=== PATIENT | female | born 1980 | race American Indian/Alaskan Native ===

== ENCOUNTER 2021-01-28 19:16 | Emergency (ER) | payer MEDICAID ==
--- NOTE | 2021-01-28 21:04 | Event Note ---
ED Screening Note ED Screening Note: llq pain since tuesday no dysuria no vag dc This initial assessment/diagnostic orders/clinical plan/treatment(s) is/are subject to change based on patients health status, clinical progression and re- assessment by fellow clinical providers in the ED. Further treatment and workup at subsequent clinical providers discretion. Patient/guardian urged not to elope from the ED as their condition may be serious if not clinically assessed and managed. Initial orders include: labs ua
[2021-01-28 21:14] VITALS: BP 146/97
[2021-01-28 21:42] LABS: Bilirubin,Urine NEG (Negative); Blood,Urine NEG (Negative); Color,Urine Yellow (Yellow); Mucus,Urine FEW /HPF; Protein,Urine <15 mg/dL mg/dL (Negative); Urobilinogen,Urine < 2.0 mg/dL (<2.0)
[2021-01-28 21:44] LABS: Hematocrit 30.9 % (30.3-42.9); Hemoglobin 9.7 gm/dl (10.1-14.3); Mean Corpuscular HGB Conc 31 % (30-34); Mean Corpuscular Volume 71 fl (79-97); Platelet Count 333 K/mm3 (140-440); Red Blood Count 4.38 M/mm3 (3.65-5.03); Red Cell Distribution Width 19.6 % (13.2-15.2)
[2021-01-28 21:50] LABS: HCG Qualitative,Urine Negative (Negative)
--- NOTE | 2021-01-28 21:57 | Emergency Department Report ---
ED Abdominal Pain HPI - General Chief Complaint: Abdominal Pain Stated Complaint: ABD PAIN/CRAMPS PUI?: No Time Seen by Provider: 01/28/21 21:37 Source: patient Mode of arrival: Ambulatory Limitations: No Limitations - History of Present Illness Initial Comments: 40 YO AA COMES TO ER WITH LOWER ABD PAIN. SUPRAPUBIC AND TO LEFT NO VAG DC NO DYSURIA NO CONCERN FOR STI PRIOR HX UTI NO FEVER OR CHILLS NO N/V AMBULATORY NON ILL APPEARING ON ARRIVAL TO ER Severity scale (0 -10): 0 - Related Data Previous Rx's Medication Instructions Recorded Last Taken Type Fluconazole [Diflucan TAB] 200 mg PO QDAY #1 tablet 01/28/21 Unknown Rx Sulfamethoxazole/Trimethoprim 1 each PO BID #10 tablet 01/28/21 Unknown Rx [Bactrim DS TAB] Allergies Allergy/AdvReac Type Severity Reaction Status Date / Time No Known Allergies Allergy Verified 01/28/21 21:59 ED Review of Systems ROS: Stated complaint: ABD PAIN/CRAMPS Other details as noted in HPI Comment: All other systems reviewed and negative ED Past Medical Hx - Past Medical History Previous Medical History?: Yes Hx Hypertension: Yes - Surgical History Past Surgical History?: No - Family History Family history: no significant - Social History Smoking Status: Never Smoker Substance Use Type: None - Medications Home Medications: Home Medications Medication Instructions Recorded Confirmed Last Taken Type Fluconazole [Diflucan TAB] 200 mg PO QDAY #1 tablet 01/28/21 Unknown Rx Sulfamethoxazole/Trimethoprim 1 each PO BID #10 tablet 01/28/21 Unknown Rx [Bactrim DS TAB] ED Physical Exam - General Limitations: No Limitations General appearance: alert, in no apparent distress - Head Head exam: Present: atraumatic, normocephalic - Eye Eye exam: Present: normal appearance - ENT ENT exam: Present: mucous membranes moist - Neck Neck exam: Present: normal inspection - Respiratory Respiratory exam: Present: normal lung sounds bilaterally. Absent: respiratory distress - Cardiovascular Cardiovascular Exam: Present: regular rate, normal rhythm. Absent: systolic murmur, diastolic murmur, rubs, gallop - GI/Abdominal GI/Abdominal exam: Present: soft, normal bowel sounds - Extremities Exam Extremities exam: Present: normal inspection - Back Exam Back exam: Present: normal inspection - Neurological Exam Neurological exam: Present: alert, oriented X3 - Psychiatric Psychiatric exam: Present: normal affect, normal mood - Skin Skin exam: Present: warm, dry, intact, normal color. Absent: rash ED Course Vital Signs 01/28/21 01/28/21 21:09 22:50 Temperature 98.6 F Pulse Rate 78 79 Respiratory 18 16 Rate Blood Pressure 146/97 [Right] O2 Sat by Pulse 100 100 Oximetry ED Medical Decision Making - Lab Data Result diagrams: 01/28/21 21:24 01/28/21 21:24 - Medical Decision Making Lab Results 01/28/21 01/28/21 Range/Units 21:16 21:24 WBC 5.9 (4.5-11.0) K/mm3 RBC 4.38 (3.65-5.03) M/mm3 Hgb 9.7 L (10.1-14.3) gm/dl Hct 30.9 (30.3-42.9) % MCV 71 L (79-97) fl MCH 22 L (28-32) pg MCHC 31 (30-34) % RDW 19.6 H (13.2-15.2) % Plt Count 333 (140-440) K/mm3 Urine Color Yellow (Yellow) Urine Turbidity Cloudy (Clear) Urine pH 8.0 H (5.0-7.0) Ur Specific [place] 1.011 (1.003-1.030) Urine Protein <15 mg/dl (Negative) mg/dL Urine Glucose (UA) Neg (Negative) mg/dL Urine Ketones Neg (Negative) mg/dL Urine Blood Neg (Negative) Urine Nitrite Neg (Negative) Urine Bilirubin Neg (Negative) Urine Urobilinogen < 2.0 (<2.0) mg/dL Ur Leukocyte Esterase Neg (Negative) Urine WBC (Auto) 17.0 H (0.0-6.0) /HPF Urine RBC (Auto) 4.0 (0.0-6.0) /HPF U Epithel Cells (Auto) 1.0 (0-13.0) /HPF Urine Mucus Few /HPF Urine Yeast (Budding) 3+ /HPF Urine HCG, Qual Negative (Negative) Vital Signs 01/28/21 21:09 Temperature 98.6 F Pulse Rate 78 Respiratory 18 Rate Blood Pressure 146/97 [Right] O2 Sat by Pulse 100 Oximetry ua noted rocephin im and diflucan in ER culture pending denies vag dc or itching. abd snt no cva tenderness ambulatory non ill nontoxic on dc dc home with rx and instructions for follow up. pt verbalizes understanding of plan of care - Differential Diagnosis RO PREG/UTI Critical care attestation.: If time is entered above; I have spent that time in minutes in the direct care of this critically ill patient, excluding procedure time. ED Disposition Clinical Impression: UTI (urinary tract infection) Disposition: DC-01 TO HOME OR SELFCARE Is pt being admited?: No Does the pt Need Aspirin: No Condition: Stable Instructions: Urinary Tract Infection, Adult, Abdominal Pain (ED) Additional Instructions: MEDS ORDERED TODAY FOLLOW UP WITH PCP NEXT WEEK TO BE SURE YOU ARE GETTING BETTER REFERRAL BELOW STAY WELL HYDRATED WITH WATER TYLENOL OR MOTRIN FOR PAIN Prescriptions: Sulfamethoxazole/Trimethoprim [Bactrim DS TAB] 1 each PO BID #10 tablet Fluconazole [Diflucan TAB] 200 mg PO QDAY #1 tablet Referrals: JASON HILLIARD MD [Staff Physician] - 3-5 Days Time of Disposition: 22:02
[2021-01-28] MEDS ORDERED: IBUPROFEN 800 MG TAB PO ONE (21:58)
[2021-01-28] MEDS ORDERED: LIDOCAINE-MPF (1%) 10 MG/1 ML VIAL 5 ML INFILTRATI ONE (21:58)
[2021-01-28 22:07] LABS: Blood Urea Nitrogen 12 mg/dL (7-17); Calcium 9.5 mg/dL (8.4-10.2); Hemolysis Index 2
[2021-01-28 22:14] LABS: BUN/Creatinine Ratio 17
== END 2021-01-28 22:50 | disposition home or self-care (01) ==
LOC: ED 19:16
DX: N39.0 Urinary tract infection, site not specified (principal); I10 Essential (primary) hypertension; Z79.899 Other long term (current) drug therapy
CPT/HCPCS: 36415; 80048; 81001; 81025; 85027; 87086; 96372; 99283; J0696

== ENCOUNTER 2021-04-17 10:56 | Emergency (ER) | payer MEDICAID ==
[2021-04-17 11:08] VITALS: BP 148/80
--- NOTE | 2021-04-17 16:57 | Emergency Department Report ---
ED Dizziness HPI - General Chief Complaint: Dizziness Stated Complaint: HEADACHE/JOINT ACHE/DIZZY,ABD PAIN Time Seen by Provider: 04/17/21 16:38 Source: patient Mode of arrival: Ambulatory Limitations: No Limitations - History of Present Illness Initial Comments: 40-year-old female with a past medical history of hypertension presents to the hospital complaining of headache, shoulder/joint pain, dizziness, lower abdominal pain since yesterday. Symptoms worse today. Patient states she has been having intermittent fasting for the last 2 weeks. He is also having looser stools than usual and had 3-4 episodes today. She denies nausea, vomiting, feve r, dysuria, or urinary frequency prior history of anemia as a teenager. Patient's LMP was April 03 and was heavy. She denies cough, chest pain, shortness of breath, loss of sense of taste or smell. Patient did receive her Covid vaccine. - Related Data Previous Rx's Medication Instructions Recorded Last Taken Type Fluconazole [Diflucan TAB] 200 mg PO QDAY #1 tablet 01/28/21 Unknown Rx Sulfamethoxazole/Trimethoprim 1 each PO BID #10 tablet 01/28/21 Unknown Rx [Bactrim DS TAB] Allergies Allergy/AdvReac Type Severity Reaction Status Date / Time No Known Allergies Allergy Verified 01/28/21 21:59 ED Review of Systems ROS: Stated complaint: HEADACHE/JOINT ACHE/DIZZY,ABD PAIN Other details as noted in HPI Comment: All other systems reviewed and negative ED Past Medical Hx - Past Medical History Previous Medical History?: Yes Hx Hypertension: Yes - Surgical History Past Surgical History?: No - Social History Smoking Status: Never Smoker Substance Use Type: None - Medications Home Medications: Home Medications Medication Instructions Recorded Confirmed Last Taken Type Fluconazole [Diflucan TAB] 200 mg PO QDAY #1 tablet 01/28/21 Unknown Rx Sulfamethoxazole/Trimethoprim 1 each PO BID #10 tablet 01/28/21 Unknown Rx [Bactrim DS TAB] ED Physical Exam - General Limitations: No Limitations - Other Other exam information: General: No acute distress Head: Atraumatic Eyes: normal appearance ENT: Moist mucous membranes Neck: Normal appearance, no midline tenderness Chest: Clear to auscultation bilaterally CV: Regular rate and rhythm Abdomen: Soft, normal bowel sounds, nontender, nondistended, no rebound or guarding Back: Normal inspection Extremity: Normal inspection, full range of motion Neuro: Alert O x 3, no facial asymmetry, speech clear, no gross motor sensory deficit Psych: Appropriate behavior Skin: No rash ED Course Vital Signs 04/17/21 04/17/21 11:02 18:02 Temperature 98.1 F Pulse Rate 79 Respiratory 18 16 Rate Blood Pressure 148/80 O2 Sat by Pulse 100 100 Oximetry ED Medical Decision Making - Lab Data Result diagrams: 04/17/21 16:57 04/17/21 16:57 Lab Results 04/17/21 04/17/21 04/17/21 Range/Units 16:57 16:57 Unknown WBC 5.6 (4.5-11.0) K/mm3 RBC 4.63 (3.65-5.03) M/mm3 Hgb 10.6 (10.1-14.3) gm/dl Hct 33.4 (30.3-42.9) % MCV 72 L (79-97) fl MCH 23 L (28-32) pg MCHC 32 (30-34) % RDW 19.1 H (13.2-15.2) % Plt Count 429 (140-440) K/mm3 Lymph % (Auto) 33.8 (13.4-35.0) % [place] % (Auto) 11.2 H (0.0-7.3) % Eos % (Auto) 2.9 (0.0-4.3) % Baso % (Auto) 0.7 (0.0-1.8) % Lymph # (Auto) 1.9 (1.2-5.4) K/mm3 [place] # (Auto) 0.6 (0.0-0.8) K/mm3 Eos # (Auto) 0.2 (0.0-0.4) K/mm3 Baso # (Auto) 0.0 (0.0-0.1) K/mm3 Seg Neutrophils % 51.4 (40.0-70.0) % Seg Neutrophils # 2.9 (1.8-7.7) K/mm3 Sodium 139 (137-145) mmol/L Potassium 4.1 (3.6-5.0) mmol/L Chloride 101.7 (98-107) mmol/L Carbon Dioxide 27 (22-30) mmol/L Anion Gap 14 mmol/L BUN 7 (7-17) mg/dL Creatinine 0.7 (0.6-1.2) mg/dL Estimated GFR > 60 ml/min BUN/Creatinine Ratio 10 % Glucose 74 (65-100) mg/dL Calcium 9.7 (8.4-10.2) mg/dL Urine Color Yellow (Yellow) Urine Turbidity Clear (Clear) Urine pH 6.0 (5.0-7.0) Ur Specific [place] 1.019 (1.003-1.030) Urine Protein <15 mg/dl (Negative) mg/dL Urine Glucose (UA) Neg (Negative) mg/dL Urine Ketones Neg (Negative) mg/dL Urine Blood Neg (Negative) Urine Nitrite Neg (Negative) Urine Bilirubin Neg (Negative) Urine Urobilinogen < 2.0 (<2.0) mg/dL Ur Leukocyte Esterase Neg (Negative) Urine WBC (Auto) < 1.0 (0.0-6.0) /HPF Urine RBC (Auto) 2.0 (0.0-6.0) /HPF U Epithel Cells (Auto) 2.0 (0-13.0) /HPF Urine Mucus Few /HPF Urine HCG, Qual Negative (Negative) - EKG Data -: EKG Interpreted by Me EKG shows normal: sinus rhythm, ST-T waves (No STEMI) Rate: normal (66) - Medical Decision Making 40-year-old female has a variety of complaints including headaches, body aches, fatigue, and lower abdominal pain was not reproduced on exam. Patient lacks urinary symptoms including dysuria or frequency. Also denies vaginal discharge. Labs, EKG, and UA and all negative. Patient is vaccinated for Covid. Patient may be developing a viral syndrome or fatigue. Symptoms may also be related to her change in diet and fasting intermittent fasting for the last 2 weeks. Outpatient Covid testing recommended as well as increased p.o. intake and PMD follow-up Critical Care Time: No Critical care attestation.: If time is entered above; I have spent that time in minutes in the direct care of this critically ill patient, excluding procedure time. ED Disposition Clinical Impression: Dizziness, Decreased oral intake, Arthralgia Disposition: HOME / SELF CARE / HOMELESS Is pt being admited?: No Does the pt Need Aspirin: No Condition: Stable Instructions: Joint Pain, [id number], Dizziness Additional Instructions: Your laboratory and your evaluation today are normal. Follow-up with your doctor or doctor/clinic provided for further testing. If you develop further infectious symptoms I recommend outpatient Covid testing. Increase your oral intake. Return if symptoms worsen as indicated by your discharge instructions. Take Tylenol as needed for pain. Referrals: VANDANA RAMIREZ [Other] - 3-5 Days Time of Disposition: 18:10
[2021-04-17 17:09] LABS: Bilirubin,Urine NEG (Negative); Blood,Urine NEG (Negative); Color,Urine Yellow (Yellow); Mucus,Urine FEW /HPF; Protein,Urine <15 mg/dL mg/dL (Negative); Urobilinogen,Urine < 2.0 mg/dL (<2.0); WBC,Urine < 1.0 /HPF (0.0-6.0)
[2021-04-17 17:18] LABS: HCG Qualitative,Urine Negative (Negative)
[2021-04-17 17:26] LABS: Blood Urea Nitrogen 7 mg/dL (7-17); Calcium 9.7 mg/dL (8.4-10.2); Hemolysis Index 4
[2021-04-17 17:28] LABS: Basophils % (Auto) 0.7 % (0.0-1.8); Eosinophils # (Auto) 0.2 K/mm3 (0.0-0.4); Eosinophils % (Auto) 2.9 % (0.0-4.3); Hematocrit 33.4 % (30.3-42.9); Hemoglobin 10.6 gm/dl (10.1-14.3); Lymphocytes # (Auto) 1.9 K/mm3 (1.2-5.4); Lymphocytes % (Auto) 33.8 % (13.4-35.0); Mean Corpuscular HGB Conc 32 % (30-34); Mean Corpuscular Volume 72 fl (79-97); Monocytes # (Auto) 0.6 K/mm3 (0.0-0.8); Monocytes % (Auto) 11.2 % (0.0-7.3); Platelet Count 429 K/mm3 (140-440); Red Blood Count 4.63 M/mm3 (3.65-5.03); Red Cell Distribution Width 19.1 % (13.2-15.2)
[2021-04-17 17:31] LABS: BUN/Creatinine Ratio 10
--- NOTE | 2021-04-21 08:45 | Electrocardiograph Report ---
[facility] Test Date: 2021-04-17 Test Time: 11:11:00 Pat Name: ZARA MCKEON Department: Room: Gender: F [employer] Consultant: ELIZABETH : 1980 Requested By: ED DOC Order Number: [id number] Reading MD: Kaleb Vargas Measurements Intervals [place] Rate: 66 P: 68 NE: 153 QRS: 42 QRSD: 90 T: 38 QT: 417 QTc: 439 Interpretive Statements Sinus rhythm No previous ECG available for comparison Electronically Signed On 04-21-2021 8:45:34 EDT by Kaleb Vargas
== END 2021-04-17 18:18 | disposition home or self-care (01) ==
LOC: ED 10:56
DX: R42 Dizziness and giddiness (principal); R63.0 Anorexia; I10 Essential (primary) hypertension
CPT/HCPCS: 36415; 80048; 81001; 81025; 85025; 93005; 99283